=== PATIENT | male | born 1950 | race Caucasian/White ===

== ENCOUNTER 2021-02-14 11:25 | Emergency (ER) | payer OTHER ==
--- OUTSIDE RECORDS SUMMARY | 2021-02-14 11:31 | XMS REPORT | Continuity of Care Document ---
:1950 Author Organization [facility] t Address [address] [place] [address] Care Team Providers Name Role Phone EUGENE Primary Care Physician Unavailable Cristhian SANTA Attending Clinician Doctor Unassigned, Name Attending Clinician Unavailable EUGENE Attending Clinician Unavailable EUGENE Admitting Clinician Unavailable Problems This patient has no known problems. Allergies, Adverse Reactions, Alerts This patient has no known allergies or adverse reactions. Medications This patient has no known medications. Procedures This patient has no known procedures. Encounters Start End Encounter Admission Attending Care Care Encounter Source Date/Time Date/Time Type Type Clinicians Facility Department ID 2021-02-07 2021-02-07 [id number] 00:00:00 00:00:00 [place] [id number] [place] [id number] Professio [phone] [address] 2021-01-20 2021-01-20 [facility] [id number] 00:00:00 00:00:00 [facility] [id number] [place] [id number] Professio [phone] [place] [address] Office [facility] 2021-01-10 2021-01-10 [facility] [id number] 00:00:00 00:00:00 [facility] [id number] [place] [id number] Profess[facility] [phone] [place] [address] Office [facility] 2021-01-10 2021-01-10 Refill Cristhian, [facility] [id number] 00:00:00 00:00:00 [facility] [id number] [place] [id number] Professio [phone] [place] [address] Office [facility] 2020-12-18 2020-12-18 Telephone Cristhian, [facility] [id number] 00:00:00 00:00:00 [facility] [id number] [place] [id number] Professio [phone] [place] [address] Office [facility] 2020-12-17 2020-12-17 Refill Cristhian, [facility] [id number] 00:00:00 00:00:00 [facility] [id number] [place] [id number] Professio [phone] [place] [address] Office [facility] 2020-12-16 2020-12-16 Refill Cristhian, [facility] [id number] 00:00:00 00:00:00 [place] [id number] [place] [id number] Professio [phone] [address] 2020-12-16 2020-12-16 Refvijaya Morrow, [facility] 1.2.840.114 [id number] 00:00:00 00:00:00 [place] 350.1.13.10 [place] [id number] Professio [phone] [address] 2020-12-12 2020-12-12 Telephone Cristhian, [facility] [id number] 00:00:00 00:00:00 [facility] 350.1.13.10 [place] [id number] Professio [phone] [place] [address] Office [facility] 2020-12-11 2020-12-11 Telephone Cristhian, [facility] [id number] 00:00:00 00:00:00 [facility] 350.1.13.10 [place] [id number] Professio [phone] [place] [address] Office [address] [facility] 2020-12-10 2020-12-10 [facility] [id number] 00:00:00 00:00:00 [facility] [id number] [place] [id number] Professio [phone] [place] [address] Office [facility] 2020-12-05 2020-12-05 Orders Doctor [facility] [id number] [id number] 00:00:00 00:00:00 Only Unassigned, [facility] 350.1.13.10 [facility] 4.2.7.2.686 [phone] [id number] 2020-12-02 2020-12-02 [facility] [id number] 00:00:00 00:00:00 [facility] [id number] [place] [id number] Professio [phone] [place] [address] [address] [facility] 2020-11-21 2020-11-21 [facility] [id number] 00:00:00 00:00:00 [place] [id number] [place] [id number] Professio [phone] [address] 2020-11-12 2020-11-12 Orders Doctor [facility] 1.2.840.114 [id number] 00:00:00 00:00:00 Only Unassigned, AFSH[facility] 350.1.13.10 [facility] 4.2.7.2.686 [phone] [id number] 2020-11-04 2020-11-04 [facility] [id number] 00:00:00 00:00:00 [facility] [id number] [place] [id number] Professio [phone] [place] [address] Office [facility] Results Test Description Test Time Test Comments Results Result Comments Source Sed Rate ESR ([employer]) 2017-03-18 21:29:00 Test Item Value Reference Range Interpretation Comme nts ESR (test code = HESR) 4 mm/Hr 0-9 N Thyroid Stimulating Hormone (TSH)2017-03-18 20:54:00 Test Item Value Reference Range Interpretation Comments TSH (test code = TSH) 1.49 mIU/mL 0.270-4.200 N [id number] 20:29:00 Test Item Value Reference Range Interpretation Comments Folate (test code = 12.0 ng/mL Normal FOL) 3.0-20.0 ng/mLBorderline 2.2-3.0 ng/mLDe ficient < 2.2 ng/ mL Vitamin [id number] 20:29:00 Test Item Value Reference Range Interpretation Comments Vitamin B 12 (test code = VITB12) 252 pg/mL 211-946 N Comprehensive Metabolic [id number] 20:22:00 Test Item Value Reference Range Interpretation Comments Sodium (test code = 130 mmol/L 135-145 L NA) Potassium (test 3.9 mmol/L 3.5-5.1 N code = K) Chloride (test code 89 mmol/L 98-105 L = CL) Carbon Dioxide 23 mmol/L 22-29 N (test code = CO2) Glucose (test code 140 mg/dL 70-115 H = GLU) Blood Urea Nitrogen 13 mg/dL 8-23 N (test code = BUN) Creatinine (test 1.2 mg/dL 0.7-1.2 N code = CREAT) Calcium (test code 9.4 mg/dL 8.3-10.5 N = CA) Prot Total (test 6.9 g/dL 6.4-8.3 N code = TP) Albumin (test code 4.4 g/dL 3.5-5.2 N = ALB) A/G Ratio (test 1.8 Ratio code = AGRATIO) Globulin (test code 2.5 2.9-3.1 L = GLOB) Bili Total (test 0.4 mg/dL 0.1-0.9 N code = TBIL) Alk Phos (test code 87 U/L 40-129 N = APHOS) AST (test code = 16 U/L 1-40 N AST) ALT (test code = 12 U/L 1-41 N ALT) BUN/Creatinine 10.8 Ratio (test code = BCRATIO) Anion Gap (test 18 mmol/L 7-16 H code = AGAP) Estimated GFR (test >60 eGFR (es timated code = GFR) mL/min/1.73m2 Glomerular Noah tration Rate) is an est imated value,calculate d from the patient's s rob creatinine usin g the MDRD equation.I t is NOT the patient 's actual GFR. The eGFR provides a more clinicallyusefu l measure of kidn ey disease than se rum creatinine alone.This calculation isaac es sex and race into account, if the informationis provided. If th e race is not provided , and the patient isAfrican-Ameri can, multiply by 1.2 12. If sex is not prov ided, and thepatient is female, multipl y by 0.742. Results for patients <18 ye ars ofage have not been validated by th e MDRD study and shoul d be interpretedwith caution.eGFR Re sult Interpretation: eGFR > or = 60 is in t he Normal RangeeGF R < 60 may mean kidney diseaseeGFR < 1 5 may mean kidney failureRange s recommended by the National Kidney Foundation,http ://nkd ep.nih.gov Lipid [id number] 20:22:00 Test Item Value Reference Range Interpretation Comments Cholesterol (test 198 mg/dL 0-200 N code = CHOL) Triglycerides (test 108 mg/dL 9-200 N code = TRIG) HDL (test code = 65 mg/dL 40-60 H HDL) Chol/HDL (test code 3.0 Ratio 0.0-5.0 N = CHOLPHDL) LDL, Calculated 111 mg/dL 0-130 N (NOTE)RISK O F HEART (test code = LDLC) DISEASEPu blished by [place] Heart AssociationAnal yte Optim al Boderline Increased RiskC HOL <200 200-239 >240TRI G <150 150-199 >200HDL Male: >60 <40HDL Female: >60 <50 LDL < 100 130-15 9 >160 LDL NEAR OPTIMAL IS 100- 129 VLDL (test code = 22 mg/dL 5-40 N VLDL) LDL/HDL (test code = 2 LDLPHDL) CBC with [id number] 20:06:00 Test Item Value Reference Range Interpretation Comments WBC (test code = WBC) 8.0 K/cumm 4.4-10.5 N RBC (test code = RBC) 4.45 M/cumm 4.10-5.70 N Hemoglobin (test code = HGB) 15.3 gm/dL 13.4-17.4 N Hematocrit (test code = HCT) 48.0 % 38.7-52.0 N MCV (test code = MCV) 107.9 fL 80-100 H MCH (test code = MCH) 34.4 pg 27.0-32.5 H MCHC (test code = MCHC) 31.9 g/dL 32.0-37.5 L RDW (test code = RDW) 13.4 % 11.5-14.5 N Platelet Count (test code = 260 K/cumm 140-440 N PLTCT) MPV (test code = MPV) 11.8 fL Diff Method (test code = DIFFM) Auto Neutrophil (test code = NEUT) 72.7 % 36-70 H Lymphocyte (test code = LYMPH) 21.7 % 12-44 N Monocyte (test code = MONO) 3.3 % 0-11 N Eosinophil (test code = EOS) 1.7 % 0-7 N Basophil (test code = BASO) 0.7 % 0-2 N Neutro Abs (test code = ANEUT) 5.8 K/cumm 1.6-7.4 N Lymph Abs (test code = ALYMPH) 1.7 K/cumm 0.5-4.6 N Uinta Abs (test code = AMONO) 0.3 K/cumm 0.0-1.2 N Eos Abs (test code = AEOS) 0.13 K/cumm 0.00-0.74 N Baso Abs (test code = ABASO) 0.1 K/cumm 0.00-0.21 N Macrocytosis (test code = MACRO) Slight
[2021-02-14] MEDS ORDERED: NA CHLORIDE 0.9% 1,000 ML ONE ×3 (12:10→19:39)
[2021-02-14 12:25] LABS: Absolute Lymphocytes (CBC) 2.2 K/uL (0.7-4.9); Basophils % 0.7 % (0-1.3); Hematocrit 43.3 % (39.6-49.0); Lymphocytes % 20.8 % (15.3-44.8); MPV 9.7 fL (7.6-11.3)
[2021-02-14 12:31] LABS: Protime INR 0.93
--- NOTE | 2021-02-14 12:37 | RAD REPORT ---
EXAM DESCRIPTION: RAD - Chest Single View - 02/14/2021 12:20 pm CLINICAL HISTORY: syncope Chest pain. COMPARISON: Chest Single View dated 11/09/2016 FINDINGS: Portable technique limits examination quality. The lungs are grossly clear. The heart is normal in size. No displaced fractures. IMPRESSION: No acute intrathoracic process suspected.
[2021-02-14 12:42] LABS: Bilirubin Direct 0.4 mg/dL (0-0.2); Bilirubin Total 0.9 mg/dL (0.2-1.0); Potassium 3.5 mmol/L (3.5-5.1); Protein, Total 6.2 g/dL (6.4-8.2); Troponin (Emerg Dept Use Only) 0.17 ng/mL (0.0-0.045)
--- NOTE | 2021-02-14 13:24 | RAD REPORT ---
EXAM DESCRIPTION: CT - Head Brain Wo Cont - 02/14/2021 1:13 pm CLINICAL HISTORY: SYNCOPE Headache, drowsiness COMPARISON: No comparisons TECHNIQUE: All CT scans are performed using dose optimization technique as appropriate and may inclu de automated exposure control or mA/KV adjustment according to patient size. FINDINGS: No intracranial hemorrhage, hydrocephalus or extra-axial fluid collection.Mild generalized brain atrophy is present with mild periventricular and deep white matter chronic microvascular ische meredith changes.No areas of brain edema or evidence of midline shift. The paranasal sinuses and mastoids are clear. The calvarium is intact. IMPRESSION: No acute intracranial abnormality.
[2021-02-14] MEDS ORDERED: FENTANYL CITR 100 MCG/2 ML ONE ×2 (14:41→21:57)
[2021-02-14] MEDS ORDERED: ASPIRIN 81 MG CHEWABLE TABLET ONE (14:41)
--- NOTE | 2021-02-14 15:17 | RAD REPORT ---
EXAM DESCRIPTION: CT - Angio Aorta For Dissection - 02/14/2021 2:43 pm CLINICAL HISTORY: Chest pain radiating to the back. syncope;Chest pain COMPARISON: No comparisons TECHNIQUE: CT angiography of the aorta was performed with MIPs. All CT scans are performed using dose optimization technique as appropriate and may include automated exposure control or mA/KV adjustment according to patient size. FINDINGS: A left aortic arch is present with normal branching pattern of the great vessels.No acute aortic finding is seen such as aneurysm, penetrating ulcer or dissection. Mild atherosclerotic plaqu ing is seen at the origin of the visceral arteries and renal arteries without high-grade stenosis. Mi ld distal aortic and bilateral iliac atherosclerosis is seen without high-grade stenosis. Extensive bilateral pulmonary thromboembolism is seen in both main and segmental branch pulmonary art eries. RV strain pattern is observed. The lungs are clear. Mild free fluid is seen along the right liver edge. Stones are likely present in the gallbladder. Mil d pericholecystic fluid is also seen.A liver mass is not detected. No intra or extrahepatic biliary t ree dilatation. The spleen, pancreas, adrenal glands and kidneys show no acute process.There is mild mucosal enhancement seen of the rectosigmoid colon. No bowel obstruction or free air.Normal appendix.No pathologic enlarged lymphadenopathy identified. Mild lumbar degenerative changes are present. IMPRESSION: Bilateral pulmonary thromboembolism is seen involving the main and segmental branches bi laterally.Moderate RV strain pattern is observed. Suspected cholelithiasis. Enhancement of the mucosa of the rectosigmoid colon may indicate colitis.
[2021-02-14 15:32] LABS: Urine Blood Trace-intact (Negative); Urine Glucose Negative (Negative); Urine Protein 1+ (Negative); Urine Specific Gravity 1.015 (1.005-1.030); Urine pH 5.5 (5.0-7.0)
--- NOTE | 2021-02-14 15:47 | EDPHYS ---
Physician Documentation [facility] Name: Tolu Portillo Age: 70 yrs Sex: Male : 1950 Arrival Date: 02/14/2021 Time: 11:30 Bed 23 Private MD: CHET Physician Sincere Martinez HPI: 02/14 11:40 This 70 yrs old Male presents to ER via EMS with complaints of Syncope, cp Diarrhea. 11:40 The patient has experienced syncope, lost consciousness. Onset: The symptoms/episode cp began/occurred this morning. Duration: The patient has had multiple episodes, that last an unknown period of time. Context: the episode(s) was witnessed, by EMS personnel, occurred at home, occurred while the patient was standing, Just prior to the episode the patient experienced no apparent symptoms. Associated injury: The patient did not suffer any apparent associated injury. Associated signs and symptoms: Pertinent positives: chest pain, diarrhea, Pertinent negatives: abdominal pain, dizziness, headache, palpitations, seizure, shortness of breath, weakness. Current symptoms: Currently, the patient is not experiencing any symptoms. Historical: - Allergies: 12:24 No Known Allergies; iw - PMHx: 11:41 Anxiety; GERD; Hypertension; iw - Immunization history:: Adult Immunizations up to date, Client reports receiving the 2nd dose of the Covid vaccine, Client reports receiving the 1st dose of the Covid vaccine, Flu vaccine is up to date. - Social history:: Smoking status: Patient reports the use of cigarette tobacco products, smokes one pack cigarettes per day. ROS: 11:45 Constitutional: Negative for body aches, chills, fever, poor PO intake. cp 11:45 Eyes: Negative for injury, pain, redness, and discharge. cp 11:45 ENT: Negative for ear pain, sore throat, difficulty swallowing, difficulty handling secretions. 11:45 Cardiovascular: Positive for chest pain, Negative for edema, palpitations. 11:45 Respiratory: Negative for cough, shortness of breath, wheezing. 11:45 Abdomen/GI: Positive for abdominal pain, diarrhea, Negative for vomiting, constipation, black/tarry stool, rectal bleeding. 11:45 Back: Negative for radiated pain. 11:45 Skin: Negative for cellulitis, rash. 11:45 Neuro: Positive for syncope, Negative for altered mental status, headache, weakness. 11:45 All other systems are negative. Exam: 11:50 Constitutional: The patient appears in no acute distress, alert, awake, cp non-diaphoretic, non-toxic, well developed, well nourished. 11:50 Head/Face: Normocephalic, atraumatic. cp 11:50 Eyes: Periorbital structures: appear normal, Pupils: equal, round, and reactive to light and accomodation, Extraocular movements: intact throughout, Conjunctiva: normal, no exudate, no injection, Sclera: no appreciated abnormality, Lids and lashes: appear normal, bilaterally. 11:50 ENT: External ear(s): are unremarkable, Nose: is normal, Mouth: Lips: moist, Oral mucosa: moist, Posterior pharynx: Airway: no evidence of obstruction, patent. 11:50 Neck: ROM/movement: is normal, is supple, without pain, no range of motions limitations. 11:50 Chest/axilla: Inspection: normal, Palpation: is normal, no crepitus, no tenderness. 11:50 Cardiovascular: Rate: normal, Rhythm: regular, Edema: is not appreciated, JVD: is not appreciated. 11:50 Respiratory: the patient does not display signs of respiratory distress, Respirations: normal, no use of accessory muscles, no retractions, labored breathing, is not present, Breath sounds: are clear throughout, no decreased breath sounds, no stridor, no wheezing. 11:50 Abdomen/GI: Inspection: abdomen appears normal, Bowel sounds: active, all quadrants, Palpation: abdomen is soft and non-tender, in all quadrants. 11:50 Back: CVA tenderness, is absent. 11:50 Neuro: Orientation: to person, place \T\ time. Mentation: is normal, Motor: moves all fours, strength is normal. 13:07 ECG was reviewed by the Attending Physician. cp Vital Signs: 11:40 BP 75 / 56; Pulse 92; iw 12:00 BP 95 / 72; Pulse 95; Resp 16; iw 12:23 BP 75 / 63; Pulse 96; Resp 16; Pulse Ox 95% on R/A; iw 12:45 BP 88 / 68; Pulse 92; Resp 18 S; Pulse Ox 96% on R/A; ca1 13:01 BP 97 / 67; Pulse 95; Resp 20 S; Pulse Ox 95% on R/A; ca1 13:30 BP 98 / 75; Pulse 97; Resp 18 S; Pulse Ox 97% on R/A; ca1 14:00 BP 103 / 75; Pulse 95; Resp 18 S; Pulse Ox 95% on R/A; ca1 14:06 Weight 81.65 kg; iw 14:30 BP 98 / 79; Pulse 95; Resp 16 S; Pulse Ox 94% on R/A; ca1 15:00 BP 102 / 88; Pulse 101; Resp 23; Pulse Ox 94% on R/A; ca1 15:30 BP 91 / 71; Pulse 96; Resp 20; Pulse Ox 94% on R/A; ca1 16:00 BP 82 / 69; Pulse 89; Resp 18 S; Pulse Ox 96% on R/A; ca1 16:30 BP 101 / 83; Pulse 89; Resp 20 S; Pulse Ox 96% on R/A; ca1 17:00 BP 119 / 90; Pulse 95; Resp 18 S; Pulse Ox 97% on R/A; ca1 17:30 BP 109 / 82; Pulse 87; Resp 18 S; Pulse Ox 95% on R/A; ca1 17:58 Temp 98.2(O); ca1 18:00 BP 107 / 84; Pulse 84; Resp 18 S; Pulse Ox 94% on R/A; ca1 18:30 BP 110 / 84; Pulse 85; Resp 17 S; Pulse Ox 97% on R/A; ca1 19:00 BP 101 / 74; Pulse 92; Resp 19; Pulse Ox 93% on R/A; Pain 0/10; fu 19:30 BP 112 / 81; Pulse 82; Resp 18; Pulse Ox 96% on R/A; fu 20:00 BP 111 / 83; Pulse 80; Resp 18; Pulse Ox 94% on R/A; fu 20:30 BP 128 / 82; Pulse 81; Resp 19; Pulse Ox 93% ; fu 21:00 BP 145 / 102; Pulse 80; Resp 21; Pulse Ox 97% on R/A; fu 21:30 BP 136 / 97; Pulse 82; Resp 16; Pulse Ox 96% on R/A; fu 22:16 BP 117 / 99; Pulse 80; Resp 17; Temp 98.2; Pulse Ox 96% on R/A; Pain 0/10; fu MDM: 11:38 Patient medically screened. valdemar 12:00 Differential Diagnosis: aortic aneurysm, cardiac arrhythmia, drug effect, GI bleed, cp idiopathic syncope, seizure, transient ischemic attack, vasovagal episode. 15:44 Physician consultation: Andre Martinez MD was called at 15:40, was contacted at 15:40, cp regarding consult, patient's condition, wants patient started on Lovenox. 15:45 Data reviewed: vital signs, nurses notes, lab test result(s), EKG, radiologic studies, cp CT scan, plain films. 15:45 Test interpretation: by ED physician or midlevel provider: ECG, plain radiologic cp studies. 16:00 Physician consultation: Jean Paul Chery DO was contacted at 15:55, regarding admission, cp to the telemetry unit. patient's condition, after a discussion of the case, a recommendation for transfer for higher level of care is made, due to no ICU beds being available. 02/14 11:37 Order name: Basic Metabolic Panel 02/14 11:37 Order name: CBC with Diff; Complete Time: 12:40 02/14 12:40 Interpretation: Normal except: RBC 4.30; MCV 100.8; SONAL% 74.2. 02/14 11:37 Order name: LFT's; Complete Time: 13:05 02/14 13:05 Interpretation: Normal except: AST 125; ALK 337; BILID 0.4; TP 6.2; ALB 3.0; A/G 0.9. 02/14 11:37 Order name: Magnesium; Complete Time: 13:05 02/14 11:37 Order name: NT PRO-BNP; Complete Time: 13:05 02/14 13:17 Interpretation: Abnormal: NT PRO-BNP 582. 02/14 11:37 Order name: PT-INR; Complete Time: 13:05 02/14 11:37 Order name: Troponin (emerg Dept Use Only); Complete Time: 13:05 02/14 13:05 Interpretation: Abnormal: TROPED 0.17. 02/14 11:37 Order name: Basic Metabolic Panel; Complete Time: 13:05 EDOK 02/14 13:06 Interpretation: Normal except: GLUC 198; CRE 1.43; GFR 49; CA 8.2. 02/14 11:40 Order name: Ptt, Activated; Complete Time: 13:05 02/14 12:42 Order name: Urine Microscopic Only; Complete Time: 17:50 02/14 17:50 Interpretation: Normal except: UWBC 20-50; UBACT LOADED. 02/14 11:37 Order name: XRAY Chest (1 view); Complete Time: 12:40 02/14 12:41 Order name: CT Head Brain wo Cont; Complete Time: 13:27 02/14 13:27 Interpretation: Report reviewed. 02/14 14:16 Order name: CT Aorta for Dissection; Complete Time: 15:23 02/14 15:32 Order name: Urine Dipstick-Ancillary; Complete Time: 15:39 EDMS 02/14 15:53 Order name: SARS-COV-2 RT PCR; Complete Time: 17:50 EDOK 02/14 16:07 Order name: Urine Culture EDOK 02/14 11:37 Order name: EKG; Complete Time: 11:38 02/14 11:37 Order name: Cardiac monitoring; Complete Time: 13:00 02/14 11:37 Order name: EKG - Nurse/Tech; Complete Time: 13:00 02/14 11:37 Order name: IV Saline Lock; Complete Time: 12:14 02/14 11:37 Order name: Labs collected and sent; Complete Time: 12:14 02/14 11:37 Order name: O2 Per Protocol; Complete Time: 12:14 02/14 11:37 Order name: O2 Sat Monitoring; Complete Time: 12:14 02/14 12:42 Order name: IV; Complete Time: 13:00 02/14 12:42 Order name: Urine Dipstick-Ancillary (obtain specimen); Complete Time: 16:39 cp EC:07 Rate is 98 beats/min. Rhythm is regular. FL interval is normal. QRS interval is cp prolonged at 128 msec. QT interval is normal. T waves are Inverted in leads V2, V3, V4, V5. Interpreted by me. Reviewed by me. Administered Medications: 11:53 Drug: NS 0.9% 1000 ml Route: IV; Rate: 1 bolus; Site: right antecubital; iw 13:00 Follow up: IV Status: Completed infusion; IV Intake: 1000ml ca1 13:02 Drug: NS 0.9% 500 ml Route: IV; Rate: bolus; Site: right antecubital; ca1 13:40 Follow up: IV Status: Completed infusion; IV Intake: 500ml ca1 13:07 Drug: NS 0.9% 1000 ml Route: IV; Rate: 1 bolus; Site: right antecubital; ca1 16:41 Follow up: IV Status: Completed infusion; IV Intake: 1000ml ca1 14:10 Drug: Aspirin Chewable Tablet 324 mg Route: PO; ca1 15:00 Follow up: Response: No adverse reaction ca1 14:16 Drug: fentaNYL (PF) 25 mcg {Note: rass 0.} Route: IVP; Site: right antecubital; ca1 15:00 Follow up: Response: No adverse reaction; Pain is decreased; RASS: Alert and Calm (0) ca1 15:43 Not Given (Physician Discretion): Heparin (NE-Bolus No thrombolytic) - HEParin 60 cp units/kg IVP once; Max 5000 units 15:43 Not Given (Physician Discretion): Heparin (NE Drip) 12 units/kg/hr - (HEParin 05878 cp units, D5W 500 ml) IV at calculated rate Per protocol; Max initial rate 1000 units/hr 15:43 Not Given (Physician Discretion): Heparin (DVT/PE- Bolus per protocol) - HEParin 80 cp units/kg IVP once; Max 8,000 units 15:43 Not Given (Physician Discretion): Heparin (DVT/PE Drip) 18 units/kg/hr - (HEParin 83245 cp units, D5W 500 ml) IV at calculated rate Per protocol; Max initial rate 1800 units/hr 15:58 Drug: Lovenox (enoxaparin) 1 mg/kg Route: Sub-Q; Site: right lower abdomen; ca1 16:35 Follow up: Response: No adverse reaction ca1 15:59 Drug: metroNIDAZOLE 500 mg Volume: 100 ml; Route: IVPB; Infused Over: 30 mins; Site: ca1 right antecubital; 16:34 Follow up: Response: No adverse reaction; IV Status: Completed infusion; IV Intake: ca1 100ml 16:14 Drug: NS 0.9% 500 ml Route: IV; Rate: bolus; Site: left antecubital; ca1 17:00 Follow up: IV Status: Completed infusion ca1 16:35 Drug: Cipro (ciprofloxacin) 400 mg Volume: 200 ml; Route: IVPB; Infused Over: 60 mins; ca1 Site: right antecubital; 17:40 Follow up: Response: No adverse reaction; IV Status: Completed infusion; IV Intake: ca1 200ml 17:53 Drug: Zofran (Ondansetron) 4 mg Route: IVP; Site: left antecubital; ca1 18:24 Follow up: Response: No adverse reaction; Nausea is decreased ca1 19:25 Drug: NS 0.9% 1000 ml Route: IV; Rate: 100 ml/hr; Site: left antecubital; fu 21:45 Drug: fentaNYL (PF) 25 mcg Route: IVP; Site: left antecubital; fu 22:30 Follow up: Response: Pain is decreased fu 21:46 Drug: ProTONIX (pantoprazole) 40 mg Route: IVP; Site: left antecubital; fu 22:30 Follow up: Response: No adverse reaction fu 22:33 Drug: Ativan (LORazepam) 1 mg Route: IVP; Site: left antecubital; fu 22:33 Follow up: Response: No adverse reaction fu Disposition: 02/15 21:15 Co-signature as Attending Physician, Sincere Martinez MD I agree with the assessment and [facility] plan of care. Disposition: 02/14/21 16:46 Transfer ordered to [facility]. Diagnosis are Pulmonary embolism with acute cor pulmonale, Cholelithiasis, Infectious gastroenteritis and colitis, unspecified. - Reason for transfer: Higher level of care. - Accepting physician is DR Oglesby. - Condition is Stable. - Problem is new. - Symptoms have improved. Signatures: Dispatcher [employer] Sincere Proctor MD MD cha Williams, Irene, RN RN Sincere Feliz PA PA cp Maximo Foley RN RN Hermila Taylor RN RN ca1 Corrections: (The following items were deleted from the chart) 02/14 13:06 13:05 Normal except: GLUC 198; CRE 1.43; GFR 49. cp cp 14:46 14:15 CORONAVIRUS+MR.LAB.BRZ ordered. [facility] 16:44 15:47 Hospitalization Ordered by Isac Miller MD for Inpatient Admission. Preliminary cp diagnosis is Pulmonary embolism with acute cor pulmonale; Infectious gastroenteritis and colitis, unspecified; Cholelithiasis. Bed requested for Telemetry/MedSurg (Inpatient). Status is Inpatient Admission. Condition is Stable. Problem is new. Symptoms have improved. cp 19:47 16:46 02/14/2021 16:46 Transfer ordered to [facility]. Diagnosis is Pulmonary cp embolism with acute cor pulmonale; Cholelithiasis; Infectious gastroenteritis and colitis, unspecified. Reason for transfer: Higher level of care. Accepting physician is Doctor. Condition is Stable. Problem is new. Symptoms have improved. cp 23:08 19:47 02/14/2021 16:46 Transfer ordered to [facility]. Diagnosis is Pulmonary fu embolism with acute cor pulmonale; Cholelithiasis; Infectious gastroenteritis and colitis, unspecified. Reason for transfer: Higher level of care. Accepting physician is DR Oglesby. Condition is Stable. Problem is new. Symptoms have improved. cp
--- NOTE | 2021-02-14 15:47 | ER ---
Nurse's Notes [facility] Name: Tolu Portillo Age: 70 yrs Sex: Male : 1950 Arrival Date: 02/14/2021 Time: 11:30 Bed 23 Private MD: Diagnosis: Pulmonary embolism with acute cor pulmonale;Cholelithiasis;Infectious gastroenteritis and colitis, unspecified Presentation: 02/14 11:33 Acuity: LAURY 2 iw 11:37 Chief complaint: EMS states: pt has had diarrhea , had syncopal episode X 2 today, EMs iw witnessed pt pass out on scene. 11:40 Coronavirus screen: Client presents with at least one sign or symptom that may indicate iw coronavirus-19. Ebola Screen: Patient negative for fever greater than or equal to 101.5 degrees Fahrenheit, and additional compatible Ebola Virus Disease symptoms Patient denies exposure to infectious person. Patient denies travel to an Ebola-affected area in the 21 days before illness onset. No symptoms or risks identified at this time. Initial Sepsis Screen: Does the patient meet any 2 criteria? No. Patient's initial sepsis screen is negative. Does the patient have a suspected source of infection? No. Patient's initial sepsis screen is negative. Risk Assessment: Do you want to hurt yourself or someone else? Patient reports no desire to harm self or others. Onset of symptoms was February 12, 2021. 11:40 Method Of Arrival: EMS: [facility] iw Historical: - Allergies: 12:24 No Known Allergies; iw - PMHx: 11:41 Anxiety; GERD; Hypertension; iw - Immunization history:: Adult Immunizations up to date, Client reports receiving the 2nd dose of the Covid vaccine, Client reports receiving the 1st dose of the Covid vaccine, Flu vaccine is up to date. - Social history:: Smoking status: Patient reports the use of cigarette tobacco products, smokes one pack cigarettes per day. Screenin:40 Abuse screen: Denies threats or abuse. Denies injuries from another. Nutritional iw screening:. Tuberculosis screening: No symptoms or risk factors identified. Fall Risk Assessment: 12:25 Reassessment: Patient appears in no apparent distress at this time. family at bedside , iw pt remains hypotensive after 1.5 L NS, Sincere Page notified, will continue to monitor. 13:00 General: Appears in no apparent distress. uncomfortable, slender, unkempt, Behavior is ca1 calm, cooperative, appropriate for age. General: Reports feeling ill for > 3 days, fatigue for. Pain: Complains of pain in all over. Neuro: Level of Consciousness is awake, alert, obeys commands, Oriented to person, place, time, situation. Cardiovascular: Heart tones S1 S2 present Capillary refill < 3 seconds Rhythm is irregular. Respiratory: Airway is patent Respiratory effort is even, unlabored, Respiratory pattern is regular, symmetrical, Breath sounds are clear bilaterally. 13:00 Pain: Complains of pain in chest Pain currently is 7 out of 10 on a pain scale. Pain ca1 began 1 hour ago. Is intermittent. GI: Abdomen is flat, non-distended, Bowel sounds present X 4 quads. Abd is soft and non tender X 4 quads. : No signs and/or symptoms were reported regarding the genitourinary system. EENT: No signs and/or symptoms were reported regarding the EENT system. Derm: Skin is fragile, is thin, with poor turgor Skin is dry, Skin is pale, Skin temperature is cool. Musculoskeletal: Circulation, motion, and sensation intact. Capillary refill < 3 seconds. 14:00 Reassessment: Patient appears in no apparent distress at this time. No changes from ca1 previously documented assessment. Patient and/or family updated on plan of care and expected duration. Pain level reassessed. Patient is alert, oriented x 3, equal unlabored respirations, skin warm/dry/pink. 14:28 Reassessment: heparin pending post CT Dissection. ca1 15:00 Reassessment: Patient appears in no apparent distress at this time. No changes from ca1 previously documented assessment. Patient and/or family updated on plan of care and expected duration. Pain level reassessed. Patient is alert, oriented x 3, equal unlabored respirations, skin warm/dry/pink. 16:00 Reassessment: Patient appears in no apparent distress at this time. No changes from ca1 previously documented assessment. Patient and/or family updated on plan of care and expected duration. Pain level reassessed. Patient is alert, oriented x 3, equal unlabored respirations, skin warm/dry/pink. 16:43 Reassessment: AndreiMichelle [phone]. ca1 17:00 Reassessment: Patient appears in no apparent distress at this time. Patient and/or ca1 family updated on plan of care and expected duration. Pain level reassessed. Patient is alert, oriented x 3, equal unlabored respirations, skin warm/dry/pink. 17:55 Reassessment: Patient appears in no apparent distress at this time. Patient is alert, ca1 oriented x 3, equal unlabored respirations, skin warm/dry/pink. 18:23 Reassessment: Patient appears in no apparent distress at this time. Patient is alert, ca1 oriented x 3, equal unlabored respirations, skin warm/dry/pink. 19:52 Reassessment: Patient appears in no apparent distress at this time. No changes from fu previously documented assessment. Patient and/or family updated on plan of care and expected duration. Pain level reassessed. Patient is alert, oriented x 3, equal unlabored respirations, skin warm/dry/pink. for transfer. awaiting updates. 21:30 Reassessment: complaining of chest pain and asking for omeprazole, Trini ROLAND notified, fu with orders made. 22:30 Reassessment: Report called to Marj Duncan RN at [facility] for ICU fu admission,Questions asked were answered. Vital Signs: 11:40 BP 75 / 56; Pulse 92; iw 12:00 BP 95 / 72; Pulse 95; Resp 16; iw 12:23 BP 75 / 63; Pulse 96; Resp 16; Pulse Ox 95% on R/A; iw 12:45 BP 88 / 68; Pulse 92; Resp 18 S; Pulse Ox 96% on R/A; ca1 13:01 BP 97 / 67; Pulse 95; Resp 20 S; Pulse Ox 95% on R/A; ca1 13:30 BP 98 / 75; Pulse 97; Resp 18 S; Pulse Ox 97% on R/A; ca1 14:00 BP 103 / 75; Pulse 95; Resp 18 S; Pulse Ox 95% on R/A; ca1 14:06 Weight 81.65 kg; iw 14:30 BP 98 / 79; Pulse 95; Resp 16 S; Pulse Ox 94% on R/A; ca1 15:00 BP 102 / 88; Pulse 101; Resp 23; Pulse Ox 94% on R/A; ca1 15:30 BP 91 / 71; Pulse 96; Resp 20; Pulse Ox 94% on R/A; ca1 16:00 BP 82 / 69; Pulse 89; Resp 18 S; Pulse Ox 96% on R/A; ca1 16:30 BP 101 / 83; Pulse 89; Resp 20 S; Pulse Ox 96% on R/A; ca1 17:00 BP 119 / 90; Pulse 95; Resp 18 S; Pulse Ox 97% on R/A; ca1 17:30 BP 109 / 82; Pulse 87; Resp 18 S; Pulse Ox 95% on R/A; ca1 17:58 Temp 98.2(O); ca1 18:00 BP 107 / 84; Pulse 84; Resp 18 S; Pulse Ox 94% on R/A; ca1 18:30 BP 110 / 84; Pulse 85; Resp 17 S; Pulse Ox 97% on R/A; ca1 19:00 BP 101 / 74; Pulse 92; Resp 19; Pulse Ox 93% on R/A; Pain 0/10; fu 19:30 BP 112 / 81; Pulse 82; Resp 18; Pulse Ox 96% on R/A; fu 20:00 BP 111 / 83; Pulse 80; Resp 18; Pulse Ox 94% on R/A; fu 20:30 BP 128 / 82; Pulse 81; Resp 19; Pulse Ox 93% ; fu 21:00 BP 145 / 102; Pulse 80; Resp 21; Pulse Ox 97% on R/A; fu 21:30 BP 136 / 97; Pulse 82; Resp 16; Pulse Ox 96% on R/A; fu 22:16 BP 117 / 99; Pulse 80; Resp 17; Temp 98.2; Pulse Ox 96% on R/A; Pain 0/10; fu ED Course: 11:30 Patient arrived in ED. iw 11:33 Triage completed. iw 11:36 Sincere Feliz PA is PHCP. cp 11:36 Sincere Martinez MD is Attending Physician. cp 11:53 Afshan Jarvis, DAISY is Primary Nurse. iw 12:04 Initial lab(s) drawn, by me, sent to lab. Inserted saline lock: 20 gauge in left dh3 antecubital area, using aseptic technique. Blood collected. 12:20 XRAY Chest (1 view) In Process Unspecified. EDMS 12:23 Arm band placed on. iw 12:56 Primary Nurse role handed off by Afshan Jarvis, RN ca1 12:56 Hermila Taylor RN is Primary Nurse. ca1 13:00 Patient has correct armband on for positive identification. Placed in gown. Bed in low ca1 position. Call light in reach. Side rails up X2. media producer on. Pulse ox on. NIBP on. Warm blanket given. 13:13 CT Head Brain wo Cont In Process Unspecified. EDMS 14:43 CT Aorta for Dissection In Process Unspecified. EDMS 15:30 Straight cath inserted, using sterile technique, 16 Fr. Returned cloudy urine. Patient ca1 tolerated well. 15:30 Urine collected: straight cath specimen, cloudy, Amount Returned: 300mL. ca1 15:45 Isac Miller MD is Hospitalizing Provider. cp 16:47 transfer initiated with Mylene from the [facility] transfer [place] at the request of eb the family/ per Mylene they will have to decline the patient in transfer due to being at capacity. 16:51 initiated a transfer with Aruna from the [facility] Transfer [place]. eb 18:23 No provider procedures requiring assistance completed. Patient transferred, IV remains ca1 in place. 19:00 Report given to DAISY Marsh. ca1 19:26 connected Sincere ROLAND with the Operating Room Orderly from [facility]. mw2 20:59 initiated a transfer with Jessica Chris from [facility]. mw2 21:07 Aruna called back from [facility] she stated "we are still waiting for the bed to be 2 cleaned, but when it's done I'll give you a call back.". 22:04 administrative approval given by Lety Friend/ patient has been accepted to [place] [id number] bed 1/ Dr. Oglesby accepted the patient in transfer/ report to be called to [phone]. Administered Medications: 11:53 Drug: NS 0.9% 1000 ml Route: IV; Rate: 1 bolus; Site: right antecubital; iw 13:00 Follow up: IV Status: Completed infusion; IV Intake: 1000ml ca1 13:02 Drug: NS 0.9% 500 ml Route: IV; Rate: bolus; Site: right antecubital; ca1 13:40 Follow up: IV Status: Completed infusion; IV Intake: 500ml ca1 13:07 Drug: NS 0.9% 1000 ml Route: IV; Rate: 1 bolus; Site: right antecubital; ca1 16:41 Follow up: IV Status: Completed infusion; IV Intake: 1000ml ca1 14:10 Drug: Aspirin Chewable Tablet 324 mg Route: PO; ca1 15:00 Follow up: Response: No adverse reaction ca1 14:16 Drug: fentaNYL (PF) 25 mcg {Note: rass 0.} Route: IVP; Site: right antecubital; ca1 15:00 Follow up: Response: No adverse reaction; Pain is decreased; RASS: Alert and Calm (0) ca1 15:43 Not Given (Physician Discretion): Heparin (NC-Bolus No thrombolytic) - HEParin 60 cp units/kg IVP once; Max 5000 units 15:43 Not Given (Physician Discretion): Heparin (NC Drip) 12 units/kg/hr - (HEParin 62883 cp units, D5W 500 ml) IV at calculated rate Per protocol; Max initial rate 1000 units/hr 15:43 Not Given (Physician Discretion): Heparin (DVT/PE- Bolus per protocol) - HEParin 80 cp units/kg IVP once; Max 8,000 units 15:43 Not Given (Physician Discretion): Heparin (DVT/PE Drip) 18 units/kg/hr - (HEParin 93327 cp units, D5W 500 ml) IV at calculated rate Per protocol; Max initial rate 1800 units/hr 15:58 Drug: Lovenox (enoxaparin) 1 mg/kg Route: Sub-Q; Site: right lower abdomen; ca1 16:35 Follow up: Response: No adverse reaction ca1 15:59 Drug: metroNIDAZOLE 500 mg Volume: 100 ml; Route: IVPB; Infused Over: 30 mins; Site: ca1 right antecubital; 16:34 Follow up: Response: No adverse reaction; IV Status: Completed infusion; IV Intake: ca1 100ml 16:14 Drug: NS 0.9% 500 ml Route: IV; Rate: bolus; Site: left antecubital; ca1 17:00 Follow up: IV Status: Completed infusion ca1 16:35 Drug: Cipro (ciprofloxacin) 400 mg Volume: 200 ml; Route: IVPB; Infused Over: 60 mins; ca1 Site: right antecubital; 17:40 Follow up: Response: No adverse reaction; IV Status: Completed infusion; IV Intake: ca1 200ml 17:53 Drug: Zofran (Ondansetron) 4 mg Route: IVP; Site: left antecubital; ca1 18:24 Follow up: Response: No adverse reaction; Nausea is decreased ca1 19:25 Drug: NS 0.9% 1000 ml Route: IV; Rate: 100 ml/hr; Site: left antecubital; fu 21:45 Drug: fentaNYL (PF) 25 mcg Route: IVP; Site: left antecubital; fu 22:30 Follow up: Response: Pain is decreased fu 21:46 Drug: ProTONIX (pantoprazole) 40 mg Route: IVP; Site: left antecubital; fu 22:30 Follow up: Response: No adverse reaction fu 22:33 Drug: Ativan (LORazepam) 1 mg Route: IVP; Site: left antecubital; fu 22:33 Follow up: Response: No adverse reaction fu Intake: 13:00 IV: 1000ml; Total: 1000ml. ca1 13:40 IV: 500ml; Total: 1500ml. ca1 16:34 IV: 100ml; Total: 1600ml. ca1 16:41 IV: 1000ml; Total: 2600ml. ca1 17:40 IV: 200ml; Total: 2800ml. ca1 Output: 16:38 Urine: 300ml (Straight Cath); Total: 300ml. ca1 Outcome: 15:47 Decision to Hospitalize by Provider. cp 16:46 ER care complete, transfer ordered by MD. 23:00 Transferred by ground EMS to [facility]. fu 23:00 Condition: good 23:00 Instructed on the need for transfer. 23:08 Patient left the ED. fu Signatures: Dispatcher [employer] EDMS Afshan Jarvis RN RN Sincere Albarado PA PA Mimi Burciaga [facility] Maximo Foley RN RN Saul Christopher mw2 Kathleen Castillo Cheryl RN RN ca1 Corrections: (The following items were deleted from the chart) 14:18 13:02 BP 88 / 68; Pulse 92bpm; Resp 18bpm; Spontaneous; Pulse Ox 96% RA; iw ca1 16:40 16:39 Straight cath inserted, using sterile technique, 16 Fr. Returned cloudy urine. ca1 Patient tolerated well. ca1 19:34 19:26 connected Sincere ROLAND with the Doctor from [facility] mw2 mw2 23:05 21:30 BP 117 / 99; Pulse 80bpm; Resp 17bpm; Pulse Ox 96% RA; Temp 98.2F; Pain 0/10; fu fu
[2021-02-14] MEDS ORDERED: HEPARIN 5000 UNIT/ML 1 ML VIAL ONE (16:00)
[2021-02-14] MEDS ORDERED: HEPARIN/D5W 25,000 UNIT/500 ML BAG IV ONE (16:01)
[2021-02-14 16:06] LABS: Urine Bacteria LOADED /HPF (NONE SEEN); Urine RBC <5 /HPF (NONE SEEN)
[2021-02-14] MEDS ORDERED: METRONIDAZOLE 500mg IVPB 500 MG/100 ML BAG IV ONE (16:15)
[2021-02-14] MEDS ORDERED: ENOXAPARIN 80 MG/0.8 ML SQ ONE (16:15)
[2021-02-14] MEDS ORDERED: CIPROFLOXACIN 400mg IV 400 MG/200 ML BAG IV ONE (16:15)
[2021-02-14] MEDS ORDERED: NA CHLORIDE 0.9% 500 ML ONE (16:34)
[2021-02-14] MEDS ORDERED: ONDANSETRON 4 MG/2 ML VIAL ONE (18:12)
[2021-02-14] MEDS ORDERED: PANTOPRAZOLE 40 MG INJ ONE (21:57)
[2021-02-14] MEDS ORDERED: LORazepam 2 MG/ML VIAL ONE (22:44)
[2021-02-15 00:26] VITALS: TEMP 98.2
[2021-02-15 00:39] VITALS: O2SAT 96
[2021-02-15 00:40] VITALS: BP 117/99
--- NOTE | 2021-02-15 06:58 | EKG ---
Test Date: 2021-02-14 Test Time: 13:01:21 Clinical Nurse Reviewer: ZANDRA MEASUREMENT RESULTS: Intervals: Rate: 98 MT: 108 QRSD: 128 QT: 430 QTc: 548 [place]: P: 68 MT: 108 QRS: 76 T: 13 INTERPRETIVE STATEMENTS: Sinus rhythm with short MT Right bundle branch block Septal infarct, age undetermined T wave abnormality, consider lateral ischemia Abnormal ECG No previous ECG available for comparison Electronically Signed On 02-15-21 06:56:26 CDT by Paras Benson
== END 2021-02-14 23:08 | disposition short-term general hospital (02) ==
LOC: ER 11:25
DX: I26.09 Other pulmonary embolism with acute cor pulmonale (principal); K80.20 Calculus of gallbladder without cholecystitis without obstruction; A09 Infectious gastroenteritis and colitis, unspecified; I10 Essential (primary) hypertension; F17.210 Nicotine dependence, cigarettes, uncomplicated; Z20.822 Contact with and (suspected) exposure to COVID-19
CPT/HCPCS: 93005; 87088; 85025; 87086; 80048; 36415; 83735; 85610; 80076; 85730; 87077; 87186; 84484; 83880; 70450; 71275; 74175; 71045; U0003; Q9967; C9113; J3010 ×2; J7040; J7030 ×3; J1644; J2405; J0744; 81003; 81015

== ENCOUNTER 2021-08-14 09:45 | Day surgery (SDC) | payer OTHER ==
[2021-08-11 14:23] LABS: Protime INR 1.01
[2021-08-11 14:33] LABS: Absolute Lymphocytes (CBC) 1.6 K/uL (0.7-4.9); Hematocrit 44.4 % (39.6-49.0); Lymphocytes % 24.3 % (15.3-44.8); MPV 8.9 fL (7.6-11.3); RBC Red Blood Cell Count 4.74 M/uL (4.33-5.43)
--- NOTE | 2021-08-12 07:36 | EKG ---
Test Date: 2021-08-11 Test Time: 13:40:32 Real Estate Accountant: [place] MEASUREMENT RESULTS: Intervals: Rate: 61 SC: 170 QRSD: 76 QT: 440 QTc: 442 [place]: P: 75 SC: 170 QRS: 55 T: 82 INTERPRETIVE STATEMENTS: Normal sinus rhythm Nonspecific ST abnormality Abnormal ECG Compared to ECG 02/14/2021 13:01:21 ST (T wave) deviation now present Short SC interval no longer present Right bundle-branch block no longer present Myocardial infarct finding no longer present T-wave abnormality no longer present Possible ischemia no longer present Electronically Signed On 08-12-21 07:34:58 PHARMACY TECHNICIAN INFUSION by Paras Benson
[~2021-08-14 09:45] MED LIST: HEPA 1000U/500MLS 2,000 UNIT/1,000 ML BAG IV ONE; NA CHLORIDE 0.9% 500 ML ONE
[2021-08-14] MEDS ORDERED: CLOPIDOGREL 75 MG TABLET ONE (10:41)
[2021-08-14] MEDS ORDERED: ASPIRIN 325 MG TAB ONE (10:48)
[2021-08-14] MEDS ORDERED: MIDAZOLAM HCL 2 MG/2 ML INJ ONE (11:38)
[2021-08-14] MEDS ORDERED: FENTANYL CITR 100 MCG/2 ML ONE (11:38)
[2021-08-14] MEDS ORDERED: NITROGLYCERIN 100 MCG/ML SYR (for cath lab use only) IV ONE (11:39)
[2021-08-14] MEDS ORDERED: VERAPAMIL HCL 10 MG/4 ML VIAL IV ONE (11:39)
[2021-08-14] MEDS ORDERED: HEPARIN 5000 UNIT/ML 1 ML VIAL ONE (11:39)
[2021-08-14] MEDS ORDERED: NACHLORIDE 0.45% 1,000 ML IV ONE (11:47)
--- NOTE | 2021-08-14 11:54 | OP ---
Date of Procedure: 08/14/2021 Surgeon: DARCY ALONSO Procedure Performed: 1.Selective coronary angiogram. 2.Left heart catheterization. 3.PCI of severe mid LAD stenosis using a 4.0 x 28 mm Synergy drug-eluting stent overlapped proximall y using a 4.0 x 8 mm Synergy drug-eluting stent with excellent results, 0% residual stenosis and TAYA -3 flow. Indication: Chest pain with abnormal stress test. Access: Right radial artery 6-Finnish closed with TR band. Complications: None. Bleeding: Less than 20 mL. Description Of Procedure: After risks, benefits, alternatives were explained, the patient agreed to proceed and signed informed consent. The patient was [facility], prepped and draped in usual sterile fashion and then given fentanyl and Versed in incremental d oses to achieve adequate moderate sedation. We then accessed right radial artery using pediatric meredith ropuncture kit and placed 6-Finnish sheath and took a 5-Finnish [place] 4.0 catheter in the aortic root, engaged left main, right coronary artery, took standard views and then advanced the catheter into the LV over wire, took LVEDP and pullback did not record a gradient. Then, we gave systemic heparin, 600 mg of Plavix, and 325 mg aspirin and took EBU 3.56-Finnish guide into the aortic root, engaged left m ain, took short run-through into the left main, then LAD, and placed in the LAD distally. In the mid LAD, the lesion was prepped using a 4.0 balloon and then placed a 4.0 x 28 mm Synergy drug-eluting s tent. There was concern of proximal dissection, so placed another 4.0 x [address]-eluting st ent, overlapped with the first stent. The area of overlap was post dilated and the results were [employer] with 0% residual stenosis and TAYA-3 flow. The guide was removed. Sheath was removed and pl aced TR band with good hemostasis. Heparin was given throughout the procedure to assure ACT level ov er 250. Findings: 1.Left main is normal. 2.Proximal LAD has 40%, mid LAD has 80% diffuse disease. Long segment. Status post successful PCI as above. The rest of the LAD is normal. Diagonal branches are normal. 3.Left circumflex normal. 4.RCA is a very large and dominant with luminal irregularities with no significant disease. 5.LVEDP borderline at 40 mmHg. Conclusion: Severe mid LAD and moderate proximal LAD stenosis, status post successful PCI as above. Plan: Aspirin, Plavix, and high-dose statin. Follow up in the office in 2 weeks. SR/MODL Voice ID: [id number] Report ID: [id number]
[2021-08-14] MEDS ORDERED: ACETAMINOPHEN 325 MG TABLET ONE (11:57)
[2021-08-14 16:05] VITALS: O2SAT 100
[2021-08-14 16:06] VITALS: BP 123/59; TEMP 97.1
== END 2021-08-14 15:12 | disposition home or self-care (01) ==
LOC: CCL 09:45
DX: I25.110 Atherosclerotic heart disease of native coronary artery with unstable angina pectoris (principal); I12.9 Hypertensive chronic kidney disease with stage 1 through stage 4 chronic kidney disease, or unspecified chronic kidney disease; N18.9 Chronic kidney disease, unspecified; I27.82 Chronic pulmonary embolism; K21.9 Gastro-esophageal reflux disease without esophagitis; Z20.822 Contact with and (suspected) exposure to COVID-19; Z82.49 Family history of ischemic heart disease and other diseases of the circulatory system
CPT/HCPCS: 36415; 80048; 85025; 85347; 85610; 85730; 92928; 93005; 93458; C1725; C1893; J1644; J2250; J3010; J7040; U0003